=== PATIENT | male | born 1955 | race Caucasian/White ===

== ENCOUNTER 2016-06-25 09:35 | Outpatient (CLI) | payer MEDICARE ==
--- NOTE | 2016-06-25 11:18 | XRay Report ---
Lumbar spine series: Traction spurs are identified anteriorly predominantly involving L2 through L4 and posteriorly at L4 and L5. There is focal ostial lysis of the mid body of L4 and mild decreased mineralization of the other vertebrae. There is mild decreased vertebral height predominately affecting L3 and L4 with mild anterior wedging of L1. There is a mild dextroscoliosis. No subluxation identified. The interspaces appear generally well-preserved with mild lateral and L5-S1. No subluxation of the apophyseal joints which may be slightly narrowed from L3 through L5. There is marked sclerosis and cortical thickening of the pelvic bones. There is synostosis of the SI joints. Impressions: 1. 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 2. Multilevel degenerative spondylosis.
== END 2016-06-25 09:36 | disposition home or self-care (01) ==
LOC: XRAY 09:35
PROVIDERS: ATTEND Internal Medicine Hematology & Oncology
DX: M47.897 Other spondylosis, lumbosacral region (principal); M89.8X8 Other specified disorders of bone, other site; M41.87 Other forms of scoliosis, lumbosacral region
CPT/HCPCS: 72110

== ENCOUNTER 2016-12-30 14:13 | Outpatient (CLI) | payer MEDICARE ==
--- NOTE | 2016-12-31 08:18 | XRay Report ---
XRAY BILATERAL HIPS AND AP PELVIS THREE VIEWS: 12/30/16 14:25:00 CLINICAL: Pain. Osteitis deformans. FINDINGS: The pelvic bones are diffusely sclerotic and expanded with a pattern typical of Paget's disease. No fracture. The SI joints are fused. Right: No fracture or dislocation. Medial joint space narrowing. Normal soft tissues. Left: No fracture or dislocation. Medial joint space narrowing.Normal soft tissues. IMPRESSION: Paget's disease of the bony pelvis and no acute findings. Bilateral hip arthritis.
--- NOTE | 2016-12-31 08:23 | XRay Report ---
XRAY LUMBAR SPINE WITH OBLIQUES: 12/30/16 14:13:00 CLINICAL: Pain. COMPARISON: 06/25/16 FINDINGS: Mild dextroscoliosis. Slight L5-S1 retrolisthesis with no pars defect identified. Stable decrease height of the L4 vertebral body. Multilevel osteophytes most prominent at L4-5 and L2-3. Stable anterior wedging of the T12 vertebral body and T12-L1 degenerative disc disease with narrowing of the disc space and anterior osteophytes. Multilevel facet joint sclerosis and neural foraminal stenosis. The pedicles are intact. No fracture. Extensive mixed lytic and sclerotic change in the pelvic bones consistent with Paget's disease. Normal soft tissues. IMPRESSION: 1. No significant change compared to the prior exam. 2. Multilevel facet joint arthropathy. 3. Remote anterior wedge compression fracture of T12. 4. Stable chronic L4 mid wedge compression fracture. 5. Stable Paget's disease involving the pelvic bones.
== END 2016-12-30 14:14 | disposition home or self-care (01) ==
LOC: XRAY 14:13
PROVIDERS: ATTEND Internal Medicine Hematology & Oncology
DX: M48.54XA Collapsed vertebra, not elsewhere classified, thoracic region, initial encounter for fracture (principal); M48.56XA Collapsed vertebra, not elsewhere classified, lumbar region, initial encounter for fracture; M51.35 Other intervertebral disc degeneration, thoracolumbar region; M16.0 Bilateral primary osteoarthritis of hip; M88.89 Osteitis deformans of multiple sites; D68.69 Other thrombophilia; M41.86 Other forms of scoliosis, lumbar region; M25.78 Osteophyte, vertebrae
CPT/HCPCS: 72100; 73521

== ENCOUNTER 2017-01-06 13:47 | Outpatient (CLI) | payer MEDICARE | END 2017-01-06 13:48 | disposition home or self-care (01) | LOC: ECHO 13:47 | PROVIDERS: ATTEND Internal Medicine Cardiovascular Disease | DX: I08.1 Rheumatic disorders of both mitral and tricuspid valves (principal); I42.9 Cardiomyopathy, unspecified | CPT/HCPCS: 93306 ==

== ENCOUNTER 2017-08-17 10:38 | Outpatient (CLI) | payer MEDICARE ==
--- NOTE | 2017-08-17 12:24 | XRay Report ---
Lumbar spine 6 views: Compared to 12/30/16. History: Lumbago due to displacement of intervertebral disc. Findings: Mild dextroscoliosis. Mild retrolisthesis of L5 on S1. Degenerative changes articular surfaces. Changes suggestive of Paget's disease L4 vertebral body and pelvic bones. Severe degenerative changes posterior elements lower lumbar spine. No evidence of acute fracture. No significant interval change. Impression: Severe degenerative changes. Changes secondary to Paget's disease. No significant interval change.
== END 2017-08-17 10:39 | disposition home or self-care (01) ==
LOC: XRAY 10:38
PROVIDERS: ATTEND Neurological Surgery
DX: M47.816 Spondylosis without myelopathy or radiculopathy, lumbar region (principal)
CPT/HCPCS: 72114

== ENCOUNTER 2018-12-15 11:28 | Emergency (ER) | payer MEDICARE ==
[2018-12-15] MEDS ORDERED: NACL 0.9% 1000 ML 1,000 ML IV ONE ×2 (11:39→12:45)
--- NOTE | 2018-12-15 11:43 | Emergency Department Report ---
ED Syncope HPI - General Chief Complaint: Syncope Stated Complaint: SYNCOPE Time Seen by Provider: 12/15/18 11:39 Source: patient, EMS Exam Limitations: no limitations - History of Present Illness Initial Comments: Patient is a 63-year-old male that present presents to the emergency room with complaints of lightheadedness and near syncope. Patient found to be hypotensive by EMS. Patient given fluids in route . Patient states he is better. Patient denies loss of consciousness and syncopal episode. Patient states she was walking outside and once he got inside the store he became very lightheaded and went down to the ground. Patient denies trauma. Patient denies head injury. Denies chest pain shortness of breath. Patient states he is feeling better. Timing/Prior Episodes: no prior history, single episode today Precipitating Factors: Positive: lightheadedness Context: standing Loss of Consciousness: no loss of consciousness Current Symptoms: denies: blurred vision, chest pain, diaphoresis, dizziness, headache, injury, lightheadedness, loss of bladder control, loss of bowel control, motionless, nausea, pale, shallow/rapid breathing, weak/absent pulse, weakness - Related Data Allergies/Adverse Reactions: Allergies MIYA Inhibitors Allergy (Verified 04/25/15 08:27) Angioedema Home Medications: Ambulatory Orders glipiZIDE [Glucotrol] 5 mg PO BID 04/25/15 metFORMIN [Glucophage] 750 mg PO QPM 04/25/15 hydrALAZINE [Apresoline TAB] 10 mg PO Q8H #90 tablet 04/27/15 Rivaroxaban [Xarelto] 20 mg PO QDAY #30 tab 05/19/15 Cyclobenzaprine [Flexeril] 10 mg PO DAILY 08/21/15 ED Review of Systems ROS: Stated complaint: SYNCOPE Other details as noted in HPI Constitutional: denies: chills, fever, weakness Eyes: denies: eye pain, eye discharge, vision change ENT: denies: ear pain, throat pain Respiratory: denies: cough, shortness of breath, wheezing Cardiovascular: denies: chest pain, palpitations Endocrine: no symptoms reported Gastrointestinal: denies: abdominal pain, nausea, diarrhea Genitourinary: denies: urgency, dysuria Musculoskeletal: denies: back pain, joint swelling, arthralgia Skin: denies: rash, lesions Neurological: denies: headache, weakness, paresthesias Psychiatric: denies: anxiety, depression Hematological/Lymphatic: denies: easy bleeding, easy bruising ED Past Medical Hx - Past Medical History Previous Medical History?: Yes Hx Hypertension: Yes Hx Congestive Heart Failure: No Hx Diabetes: Yes Hx Deep Vein Thrombosis: Yes (April 2015) Hx Psychiatric Treatment: Yes (depression) Hx Asthma: No Hx COPD: No Additional medical history: cholesterol. Diverticulitis September 2013 - Surgical History Past Surgical History?: Yes Additional Surgical History: wrist and arm sugery. - Family History Family history: no significant - Social History Smoking Status: Never Smoker Substance Use Type: None - Medications Home Medications: Home Medications Medication Instructions Recorded Confirmed Last Taken Type glipiZIDE [Glucotrol] 5 mg PO BID 04/25/15 08/21/15 08/21/15 History metFORMIN [Glucophage] 750 mg PO QPM 04/25/15 08/21/15 08/21/15 History hydrALAZINE [Apresoline TAB] 10 mg PO Q8H #90 tablet 04/27/15 08/21/15 08/21/15 Rx Rivaroxaban [Xarelto] 20 mg PO QDAY #30 tab 05/19/15 08/21/15 08/21/15 Rx Cyclobenzaprine [Flexeril] 10 mg PO DAILY 08/21/15 08/21/15 08/20/15 History ED Physical Exam - General Limitations: No Limitations General appearance: alert, in no apparent distress - Head Head exam: Present: atraumatic, normocephalic - Eye Eye exam: Present: normal appearance - ENT ENT exam: Present: mucous membranes moist - Neck Neck exam: Present: normal inspection - Respiratory Respiratory exam: Present: normal lung sounds bilaterally. Absent: respiratory distress, wheezes, rales - Cardiovascular Cardiovascular Exam: Present: regular rate, normal rhythm. Absent: systolic murmur, diastolic murmur, rubs, gallop - GI/Abdominal GI/Abdominal exam: Present: soft, normal bowel sounds. Absent: distended, tenderness, guarding - Rectal Rectal exam: Present: deferred - Extremities Exam Extremities exam: Present: normal inspection - Back Exam Back exam: Present: normal inspection - Neurological Exam Neurological exam: Present: alert, oriented X3 - Psychiatric Psychiatric exam: Present: normal affect, normal mood - Skin Skin exam: Present: warm, dry, intact, normal color. Absent: rash ED Course Vital Signs 12/15/18 12:05 Temperature 98.3 F Pulse Rate 71 Respiratory 16 Rate Blood Pressure 96/61 [Left] O2 Sat by Pulse 95 Oximetry - Reevaluation(s) Reevaluation #1: Initial evaluation done. Patient found to be hypotensive EMS and given fluids. Patient will be given another liter fluids. 12/15/18 11:40 Reevaluation #2: Patient's blood pressures improved. Patient will be given another liter of fluid. 12/15/18 12:38 Reevaluation #3: pt states she is feeling much better. Patient's blood pressure is now normal 12/15/18 13:28 Reevaluation #4: Patient ambulatory in ER. Patient stable gait. Patient is stable for discharge but CBC is still pending. 12/15/18 13:31 I discussed all results with patient. Patient is stable for discharge. Patient will be discharged home. Patient agrees with plan of care. Patient given discharge instructions. Patient voiced understanding discharge instructions. 12/15/18 13:47 ED Medical Decision Making - Lab Data Result diagrams: 12/15/18 11:53 12/15/18 11:53 - EKG Data -: EKG Interpreted by Me EKG shows normal: sinus rhythm, axis, intervals, QRS complexes, ST-T waves Rate: normal - Radiology Data Radiology results: report reviewed, image reviewed interpreted by me: Normal limits CT scan of the head - Medical Decision Making Patient is a 63-year-old male that presents emergency room with complaints of near syncope and lightheadedness and dizziness. Patient was walking outside and went into a store and became lightheaded and went to the ground. Patient did n ot lose consciousness. Patient brought in by EMS. EMS found the patient to be hypotensive patient was given fluids. Patient's blood pressure improved. Patient symptoms have resolved once he arrived to the ER. Patient's head CT was negative. Patient's EKG negative for patient's labs unremarkable. Patient tolerated oral intake in the ER. Patient also tolerated ambulating in the ER. She responded well to therapy. Patient's blood pressure and symptoms had completely resolved. Patient stable for discharge. Patient discharged home. - Differential Diagnosis dizziness. lightheadness. near syncope. dehydration. low bp Critical Care Time: Yes Critical care attestation.: If time is entered above; I have spent that time in minutes in the direct care of this critically ill patient, excluding procedure time. Critical Care Time: 35 minutes ED Disposition Clinical Impression: Dehydration Heat exhaustion Qualifiers: Encounter type: initial encounter Qualified Code(s): T67.5XXA - Heat exhaustion, unspecified, initial encounter Hypotension Qualifiers: Hypotension type: unspecified hypotension type Qualified Code(s): I95.9 - Hypotension, unspecified Disposition: DC-01 TO HOME OR SELFCARE Is pt being admited?: No Does the pt Need Aspirin: No Condition: Stable Instructions: Dehydration (ED), Heat Exhaustion (ED) Additional Instructions: Patient to follow up with primary care in 2-3 days. Patient to avoid strenuous exercise and outside activities until cleared by primary care. Patient to rest. Patient to return to ER if condition worsens. Patient increase water. Referrals: LAYLA CHSETER MD [Primary Care Provider] - 2-3 Days Time of Disposition: 13:50
[2018-12-15 12:24] LABS: Creatine Kinase MB 2.1 ng/mL (0.0-4.0)
[2018-12-15 12:25] LABS: Alanine Aminotransferase 10 units/L (7-56); Albumin 3.8 g/dL (3.9-5); BUN/Creatinine Ratio 12; Blood Urea Nitrogen 12 mg/dL (9-20); Calcium 8.6 mg/dL (8.4-10.2); Hemolysis Index 7
--- NOTE | 2018-12-15 12:55 | Cat Scan Report ---
CT HEAD WITHOUT CONTRAST INDICATION : near Syncope. Blurred vision TECHNIQUE: Axial imaging performed from the skull apex through the skull base without the use of con trast. All CT scans at this location are performed using CT dose reduction for ALARA by means of aut omated exposure control. COMPARISON: None FINDINGS: Parenchyma: No acute intracranial hemorrhage or parenchymal abnormality. No mass or mass effect. Ventricles: Ventricles are normal in size and appear symmetric. Soft tissues: Soft tissues including the orbits appear normal. Bones: No acute osseous abnormality. Sinuses: Sinuses and mastoid air cells are clear. IMPRESSION: No acute abnormality. Signer Name: Alejandro Rubi MD Signed: 12/15/2018 12:51 PM Workstation Name: [id number]
[2018-12-15 13:51] LABS: Basophils % (Auto) 0.8 % (0.0-1.8); Eosinophils % (Auto) 0.8 % (0.0-4.3); Hematocrit 37.8 % (35.5-45.6); Hemoglobin 12.4 gm/dl (11.8-15.2); Lymphocytes # (Auto) 1.4 K/mm3 (1.2-5.4); Lymphocytes % (Auto) 34.6 % (13.4-35.0); Mean Corpuscular HGB Conc 33 % (32-34); Mean Corpuscular Volume 93 fl (84-94); Monocytes # (Auto) 0.4 K/mm3 (0.0-0.8); Monocytes % (Auto) 10.7 % (0.0-7.3); Platelet Count 225 K/mm3 (140-440); Red Blood Count 4.07 M/mm3 (3.65-5.03); Red Cell Distribution Width 14.3 % (13.2-15.2)
[2018-12-15 14:45] VITALS: BP 131/80
== END 2018-12-15 14:44 | disposition home or self-care (01) ==
LOC: ED 11:28
DX: T67.5XXA Heat exhaustion, unspecified, initial encounter (principal); I95.9 Hypotension, unspecified; E86.0 Dehydration; I10 Essential (primary) hypertension; E11.9 Type 2 diabetes mellitus without complications; E78.00 Pure hypercholesterolemia, unspecified; Z98.890 Other specified postprocedural states; Z86.718 Personal history of other venous thrombosis and embolism; Z79.01 Long term (current) use of anticoagulants; Z79.899 Other long term (current) drug therapy; Z88.8 Allergy status to other drugs, medicaments and biological substances
CPT/HCPCS: 36415; 70450; 80053; 82550; 82553; 84484; 85025; 85379; 93005; 93010; 96360; 96361; 99284; J7030

== ENCOUNTER 2019-08-20 08:45 | Outpatient (CLI) | payer MEDICARE | END 2019-08-20 08:46 | disposition home or self-care (01) | LOC: LAB 08:45 | PROVIDERS: ATTEND Internal Medicine Cardiovascular Disease | DX: Z01.818 Encounter for other preprocedural examination (principal); Z11.59 Encounter for screening for other viral diseases; I42.9 Cardiomyopathy, unspecified | CPT/HCPCS: U0003 ==

== ENCOUNTER 2019-08-23 06:43 | Day surgery (SDC) | payer MEDICARE ==
[2019-08-23] MEDS ORDERED: ASPIRIN EC 325 MG TAB PO ONE ×2 (07:18→07:41)
[2019-08-23] MEDS ORDERED: SODIUM CHLORIDE 0.9% 500 ML 500 ML ONE (07:41)
[2019-08-23] MEDS ORDERED: SODIUM CHLORIDE 0.9% 500 ML 500 ML IV SCH (08:00)
[2019-08-23 08:12] LABS: Eosinophils # (Auto) 0.1 K/mm3 (0.0-0.4); Eosinophils % (Auto) 1.2 % (0.0-4.3); Hematocrit 41.4 % (35.5-45.6); Hemoglobin 13.9 gm/dl (11.8-15.2); Lymphocytes # (Auto) 1.8 K/mm3 (1.2-5.4); Lymphocytes % (Auto) 40.3 % (13.4-35.0); Mean Corpuscular HGB Conc 34 % (32-34); Mean Corpuscular Volume 91 fl (84-94); Monocytes # (Auto) 0.5 K/mm3 (0.0-0.8); Platelet Count 249 K/mm3 (140-440); Red Blood Count 4.55 M/mm3 (3.65-5.03); Red Cell Distribution Width 14.3 % (13.2-15.2)
[2019-08-23] MEDS ORDERED: HEPARIN/NS 5000 UNIT/500ML 1,000 ML IR ONE (08:15)
[2019-08-23] MEDS ORDERED: HEPARIN 10,000 UNITS/10 ML VIAL ONE (08:15)
[2019-08-23] MEDS ORDERED: LIDOCAINE (2%) 20 MG/1 ML VIAL 20 ML MDV INFILTRATI ONE (08:16)
[2019-08-23] MEDS ORDERED: VERAPAMIL 5 MG/2 ML INJ ONE (08:16)
[2019-08-23] MEDS ORDERED: NITROGLYCERIN SYRINGE 3 ML ONE (08:16)
[2019-08-23] MEDS ORDERED: MIDAZOLAM 2 MG/2 ML INJ ONE (08:18)
[2019-08-23] MEDS ORDERED: fentaNYL 100 MCG/2 ML INJ ONE (08:19)
[2019-08-23 08:43] LABS: BUN/Creatinine Ratio 16; Blood Urea Nitrogen 14 mg/dL (9-20); Calcium 9.2 mg/dL (8.4-10.2); Hemolysis Index 6
--- NOTE | 2019-08-23 10:44 | Cardiac Catherization Report ---
CARDIAC CATHETERIZATION REPORT REASON FOR PROCEDURE: Cardiomyopathy and abnormal thallium stress test. PROCEDURES: 1. Left heart catheterization. 2. Selective left and right coronary angiography. 3. Left ventricular angiography. 4. Sedation time, start 10:01, end 10:22. DESCRIPTION OF PROCEDURE: The patient was prepped and draped in a sterile fashion after informed consent. The right radial cath site was prepped and draped after a negative Kenrick's test. Right radial artery was entered using Seldinger technique. A 6-Austrian hydrophilic sheath was inserted. Routine radial cocktail was administered via the sheath. Selective left and right coronary angiography was performed using a #3.5 left Doris and #4 right Doris. A pigtail catheter was used for left ventricular angiography. The catheters were then removed, sheath removed, and hemostasis achieved using a TR band. The patient was returned to the postprocedure unit in stable condition. There were no complications. FINDINGS: HEMODYNAMICS: Left ventricular end-diastolic pressure was 14, following coronary angiography. Ascending aortic pressure was 132/84. There was no significant pressure gradient on pullback across the aortic valve. CORONARY ANGIOGRAPHY: Left main coronary artery was angiographically normal. Mild irregularities of the mid LAD, otherwise this vessel and this diagonal branches were angiographically normal. The circumflex artery contained mild irregularities in its mid segment. The right coronary artery was dominant and similarly contained mild luminal irregularities in its mid segment. Left ventricle was mildly dilated. There was mild to moderate left ventricular systolic dysfunction with diffuse hypokinesis. Left ventricular ejection fraction 35-40%. CONCLUSIONS: 1. Mild irregularities as above, no significant obstructive coronary artery disease noted. 2. Dilated, moderate severity nonischemic cardiomyopathy, left ventricular ejection fraction 35-40%. RECOMMENDATIONS: Medical therapy and risk factor modification. JOB# [id number] CA/NTS
--- NOTE | 2019-08-23 10:52 | Discharge Summary ---
Short Stay Discharge Plan Activity: advance as tolerated Weight Bearing Status: Full Weight Bearing Diet: low fat, low cholesterol, low salt, diabetic Wound: keep clean and dry Special Instructions: no heavy lifting (3 days) Additional Instructions: OK TO RESUME XARELTO TOMORROW. [facility] MINDY [Primary Care Provider] - 7 Days NENA BRYAN MD [Staff Physician] - 7 Days
[2019-08-23] MEDS ORDERED: SODIUM CHLORIDE 0.9% 1000 ML 1,000 ML IV SCH (11:00)
[2019-08-23 14:03] VITALS: BP 128/86
== END 2019-08-23 14:00 | disposition home or self-care (01) ==
LOC: CATH 06:43
PROVIDERS: ATTEND Internal Medicine Cardiovascular Disease
DX: I42.0 Dilated cardiomyopathy (principal); R94.39 Abnormal result of other cardiovascular function study; I10 Essential (primary) hypertension; I73.9 Peripheral vascular disease, unspecified; E78.00 Pure hypercholesterolemia, unspecified; M19.90 Unspecified osteoarthritis, unspecified site; F32.9 Major depressive disorder, single episode, unspecified; Z87.891 Personal history of nicotine dependence; Z98.890 Other specified postprocedural states; Z79.899 Other long term (current) drug therapy; Z86.718 Personal history of other venous thrombosis and embolism; Z88.8 Allergy status to other drugs, medicaments and biological substances; Z80.0 Family history of malignant neoplasm of digestive organs
CPT/HCPCS: 36415; 80048; 85025; 85610; 85730; 93005; 93458; 99156; C1894; J1644; J2250; J3010; J7040; Q9967

== ENCOUNTER 2021-02-26 08:57 | Emergency (ER) | payer MEDICARE ==
[2021-02-26 09:38] VITALS: BP 141/86
--- NOTE | 2021-02-26 09:41 | Emergency Department Report ---
ED ENT HPI - General Chief complaint: Dental/Oral Stated complaint: TOOTH INFECTION Time Seen by Provider: 02/26/21 09:34 Source: patient Mode of arrival: Ambulatory Limitations: No Limitations - History of Present Illness Initial comments: This is a 65-year-old male nontoxic, well nourished in appearance, no acute signs of distress presents to the ED with c/o of right lower toothache x several days. Stated that today started to have slight swelling. Patient denies following up with a dentist. Patient describes toothache as aching level of 8 out of 10. Patient denies any numbness, tingling, fever, chills, headache, stiff neck, abdominal pain, chest pain, shortness of breath. Patient stated allergies to MIYA inhibitors and lisinopril. MD complaint: tooth pain -: days(s) Location: tooth # 1 - pain here Severity: mild Severity scale (0 -10): 8 Quality: aching Consistency: constant Improves with: none Worsens with: none Context- Dental: history of dental caries Associated Symptoms: gum swelling, toothache. denies: fever, cough, pain with swallowing, sore throat, tinnitus, hearing loss, discharge from ear, rhinorrhea - Related Data Home Medications Medication Instructions Recorded Confirmed Last Taken glipiZIDE [Glucotrol] 5 mg PO BID 04/25/15 08/23/19 08/22/19 5 mg Cyclobenzaprine [Flexeril 10 MG 10 mg PO DAILY 08/21/15 08/23/19 08/20/19 TAB] 10 mg Losartan [Cozaar] 50 mg PO DAILY 08/23/19 08/23/19 08/22/19 50 mg Metoprolol Xl [Metoprolol 50 mg PO DAILY 08/23/19 08/23/19 08/22/19 SUCCINATE ER TAB] 50 mg Montelukast [Singulair] 10 mg PO DAILY 08/23/19 08/23/19 08/21/19 10 mg NIFEdipine [Nifedipine ER] 30 mg PO HS 08/23/19 08/23/19 08/21/19 30 mg Omeprazole 40 mg PO DAILY 08/23/19 08/23/19 08/22/19 40 mg Sucralfate [Carafate] 1 gm PO ACHS 08/23/19 08/23/19 08/22/19 1 mg Previous Rx's Medication Instructions Recorded Last Taken Type Rivaroxaban [Xarelto] 20 mg PO QDAY #30 tab 05/19/15 08/20/19 Rx 20 mg Chlorhexidine Mouthwash [Peridex] 15 ml MM BID #1 bottle 02/26/21 Unknown Rx Clindamycin [Clindamycin CAP] 300 mg PO Q8H #21 cap 02/26/21 Unknown Rx Allergies Allergy/AdvReac Type Severity Reaction Status Date / Time MIYA Inhibitors Allergy Angioedema Verified 02/26/21 09:00 lisinopril Allergy Swelling Verified 02/26/21 09:00 ED Dental HPI - General Chief complaint: Dental/Oral Stated complaint: TOOTH INFECTION Time Seen by Provider: 02/26/21 09:34 Source: patient Mode of arrival: Ambulatory Limitations: No Limitations - Related Data Home Medications Medication Instructions Recorded Confirmed Last Taken glipiZIDE [Glucotrol] 5 mg PO BID 04/25/15 08/23/19 08/22/19 5 mg Cyclobenzaprine [Flexeril 10 MG 10 mg PO DAILY 08/21/15 08/23/19 08/20/19 TAB] 10 mg Losartan [Cozaar] 50 mg PO DAILY 08/23/19 08/23/19 08/22/19 50 mg Metoprolol Xl [Metoprolol 50 mg PO DAILY 08/23/19 08/23/19 08/22/19 SUCCINATE ER TAB] 50 mg Montelukast [Singulair] 10 mg PO DAILY 08/23/19 08/23/19 08/21/19 10 mg NIFEdipine [Nifedipine ER] 30 mg PO HS 08/23/19 08/23/19 08/21/19 30 mg Omeprazole 40 mg PO DAILY 08/23/19 08/23/19 08/22/19 40 mg Sucralfate [Carafate] 1 gm PO ACHS 08/23/19 08/23/19 08/22/19 1 mg Previous Rx's Medication Instructions Recorded Last Taken Type Rivaroxaban [Xarelto] 20 mg PO QDAY #30 tab 05/19/15 08/20/19 Rx 20 mg Chlorhexidine Mouthwash [Peridex] 15 ml MM BID #1 bottle 02/26/21 Unknown Rx Clindamycin [Clindamycin CAP] 300 mg PO Q8H #21 cap 02/26/21 Unknown Rx Allergies Allergy/AdvReac Type Severity Reaction Status Date / Time MIYA Inhibitors Allergy Angioedema Verified 02/26/21 09:00 lisinopril Allergy Swelling Verified 02/26/21 09:00 ED Review of Systems ROS: Stated complaint: TOOTH INFECTION Other details as noted in HPI Comment: All other systems reviewed and negative Constitutional: denies: chills, fever Eyes: denies: eye pain, eye discharge, vision change ENT: dental pain. denies: ear pain, throat pain, hearing loss, epistaxis, congestion Respiratory: denies: cough, shortness of breath, wheezing Cardiovascular: denies: chest pain, palpitations Endocrine: no symptoms reported Gastrointestinal: denies: abdominal pain, nausea, diarrhea Genitourinary: denies: urgency, dysuria Musculoskeletal: denies: back pain, joint swelling, arthralgia Skin: denies: rash, lesions Neurological: denies: headache, weakness, paresthesias Psychiatric: denies: anxiety, depression Hematological/Lymphatic: denies: easy bleeding, easy bruising ED Past Medical Hx - Past Medical History Hx Hypertension: Yes Hx Heart Attack/AMI: No Hx Congestive Heart Failure: No Hx Diabetes: Yes Hx Deep Vein Thrombosis: Yes (pt on Xarelto) Hx Arthritis: Yes Hx Psychiatric Treatment: Yes (depression) Hx Asthma: No Hx COPD: No Hx HIV: No Additional medical history: cholesterol. Diverticulitis September 2013 - Surgical History Additional Surgical History: wrist and arm sugery. - Social History Smoking Status: Former Smoker - Medications Home Medications: Home Medications Medication Instructions Recorded Confirmed Last Taken Type glipiZIDE [Glucotrol] 5 mg PO BID 04/25/15 08/23/19 08/22/19 History 5 mg Rivaroxaban [Xarelto] 20 mg PO QDAY #30 tab 05/19/15 08/23/19 08/20/19 Rx 20 mg Cyclobenzaprine [Flexeril 10 MG 10 mg PO DAILY 08/21/15 08/23/19 08/20/19 History TAB] 10 mg Losartan [Cozaar] 50 mg PO DAILY 08/23/19 08/23/1908/21/20 History 50 mg Metoprolol Xl [Metoprolol 50 mg PO DAILY 08/23/19 08/23/19 08/22/19 History SUCCINATE ER TAB] 50 mg Montelukast [Singulair] 10 mg PO DAILY 08/23/19 08/23/19 08/21/19 History 10 mg NIFEdipine [Nifedipine ER] 30 mg PO HS 08/23/19 08/23/19 08/21/19 History 30 mg Omeprazole 40 mg PO DAILY 08/23/19 08/23/19 08/22/19 History 40 mg Sucralfate [Carafate] 1 gm PO ACHS 08/23/19 08/23/19 08/22/19 History 1 mg Chlorhexidine Mouthwash [Peridex] 15 ml MM BID #1 bottle 02/26/21 Unknown Rx Clindamycin [Clindamycin CAP] 300 mg PO Q8H #21 cap 02/26/21 Unknown Rx ED Physical Exam - General Limitations: No Limitations General appearance: alert, in no apparent distress - Head Head exam: Present: atraumatic, normocephalic - Eye Eye exam: Present: normal appearance - Expanded ENT Exam Expanded Ear exam: Present: normal external inspection Mouth exam: Present: normal external inspection, tongue normal. Absent: drooling, trismus, muffled voice Teeth exam: Present: dental caries, dental tenderness #, gingival enlargement, other (no facial swelling. no dental abscess) Throat exam: Positive: normal inspection, other (uvula midline). Negative: tonsillar erythema, tonsillomegaly, tonsillar exudate, R peritonsillar mass, L peritonsillar mass - Neck Neck exam: Present: normal inspection, full ROM. Absent: lymphadenopathy - Respiratory Respiratory exam: Absent: respiratory distress - Cardiovascular Cardiovascular Exam: Present: regular rate - Extremities Exam Extremities exam: Present: full ROM - Back Exam Back exam: Present: full ROM - Neurological Exam Neurological exam: Present: alert, oriented X3, normal gait - Psychiatric Psychiatric exam: Present: normal affect, normal mood - Skin Skin exam: Present: warm, dry, intact, normal color. Absent: rash ED Course Vital Signs 02/26/21 09:01 Temperature 97.7 F Pulse Rate 75 Respiratory 20 Rate Blood Pressure 141/86 O2 Sat by Pulse 96 Oximetry - Reevaluation(s) Reevaluation #1: 02/26/21 09:39 Patient is speaking in full sentences with no signs of distress noted. ED Medical Decision Making - Medical Decision Making This is a 65-year-old male that presents with gingivitis and dental caries. Patient is stable and was examined by me. physical exam does not show any dental abscess. Patient is given referrals for dental follow-up in 3 to 5 days. At time of discharge, the patient does not seem toxic or ill in appearance. No acute signs of distress noted. Patient agrees to discharge treatment plan of care. No further questions noted by the patient. Critical care attestation.: If time is entered above; I have spent that time in minutes in the direct care of this critically ill patient, excluding procedure time. ED Disposition Clinical Impression: Dental caries, Gingivitis Disposition: HOME / SELF CARE / HOMELESS Is pt being admited?: No Does the pt Need Aspirin: No Condition: Stable Additional Instructions: Follow-up with a dentist doctor in 3-5 days or if symptoms worsen and continue return to emergency room as soon as possible. Prescriptions: Clindamycin [Clindamycin CAP] 300 mg PO Q8H #21 cap Chlorhexidine Mouthwash [Peridex] 15 ml MM BID #1 bottle Referrals: PRIMARY CARE, [Referring] - 3-5 Days [facility] [Outside] - 3-5 Days [facility] [Outside] - 3-5 Days Forms: Work/School Release Form(ED) Time of Disposition: 09:41
== END 2021-02-26 10:40 | disposition home or self-care (01) ==
LOC: ED 08:57
DX: K02.9 Dental caries, unspecified (principal); K05.00 Acute gingivitis, plaque induced; Z87.892 Personal history of anaphylaxis; Z88.8 Allergy status to other drugs, medicaments and biological substances; E11.8 Type 2 diabetes mellitus with unspecified complications; I10 Essential (primary) hypertension
CPT/HCPCS: 99281